=== PATIENT | female | born 1985 | race African-American/Black ===

== ENCOUNTER 2017-08-17 00:33 | Emergency (ER) | payer BC ==
[2017-08-17 00:55] VITALS: BP 150/81; PULSE 58; TEMP 98.5; BMI 30.2
[2017-08-17 01:49] LABS: URINE APPEARANCE CLEAR; URINE BILIRUBIN NEGATIVE (NEGATIVE); URINE BLOOD NEGATIVE (NEGATIVE); URINE COLOR STRAW; URINE GLUCOSE (UA) NEGATIVE (NEGATIVE); URINE KETONE NEGATIVE (NEGATIVE); URINE LEUK ESTERASE NEGATIVE (NEGATIVE); URINE NITRITE NEGATIVE (NEGATIVE); URINE PROTEIN NEGATIVE (NEGATIVE); URINE UROBILINOGEN NEGATIVE mg/dL (0.2-1.0)
[2017-08-17 01:52] LABS: HCG,QUALITATIVE URINE NEGATIVE
--- NOTE | 2017-08-17 01:52 | PDOC ---
History of Present Illness - General Chief Complaint: Back Pain Stated Complaint: LOWER BACK PAIN Time Seen by Provider: 08/17/17 01:07 - History of Present Illness Initial Comments: Ms Quintero is a 32yo F with a PMHx of HTN who presents w/ gradually progressive L flank pain for the past month. The pain was initially intermittent, but is now constant and more intense. In retrospect she notes progressively worsening urinary frequency and urgency. She was told she was borderline diabetic, has not been treated. Denies fevers, chills. Denies dysuria or suprapubic pain. She also notes that the pain gets worse w/ movements such as back forward flexion, rotation, lateral flexion. She states it almost feels like a pulling sensation. Denies CP, SOB. Past History - Past Medical History Allergies/Adverse Reactions: Allergies Allergy/AdvReac Type Severity Reaction Status Date / Time No Known Allergies Allergy Verified 06/03/16 11:18 Home Medications: Ambulatory Orders Ibuprofen 400 mg PO TID PRN #20 tablet 06/03/16 Losartan 50Mg/Hctz 12.5MG [Hyzaar -] 1 tab PO DAILY 06/03/16 Pseudoephedrine HCl [Sudafed] 30 mg PO QID PRN #28 tablet 06/03/16 Ibuprofen [Motrin -] 600 mg PO TID #21 tablet 08/17/17 Methocarbamol [Robaxin -] 500 mg PO TID #30 tablet 08/17/17 Asthma: No Cancer: No Cardiac Disorders: No COPD: No Diabetes: Yes (gestational) GI Disorders: Yes (ACID REFLUX) HTN: Yes Seizures: No Thyroid Disease: No - Surgical History Abdominal Surgery: Yes (HERNIA) - Reproductive History (#): 3 Para: 3 - Suicide/Smoking/Psychosocial Hx Smoking Status: No Smoking History: Never smoked Have you smoked in the past 12 months: No Number of Cigarettes Smoked Daily: 0 Information on smoking cessation initiated: No Hx Alcohol Use: Yes (socially) Drug/Substance Use Hx: No Substance Use Type: None Hx Substance Use Treatment: No *Physical Exam - Vital Signs Last Vital Signs Temp Pulse Resp BP Pulse Ox 98.5 F 58 L 18 150/81 99 08/17/17 00:50 08/17/17 00:50 08/17/17 00:50 08/17/17 00:50 08/17/17 00:50 - Physical Exam Comments: GEN: AAOx3, NAD, Lying comfortably HEENT: PERRLA, EOMi CV: S1, S2, RRR LUNG: CTABL ABD: Soft, NT, ND, no suprapubic tenderness MSK: No edema, no erythema, +flank tenderness NEURO: CN 2-12 grossly intact ED Treatment Course - LABORATORY CBC & Chemistry Diagram: 08/17/17 03:19 08/17/17 03:19 Medical Decision Making - Medical Decision Making 32yo F with PMHx of HTN, borderline DM2 who presents w/ L flank pain. She has some associated symptoms that may point towards etiology such as +frequency and +urgency. However, because of the chronic nature of this flank pain, also in consideration is muscle strain. -- UA, UCx, Upregnancy 08/17/17 02:09 Urine is clear. Gave patient hot pack to assess for improvement. *DC/Admit/Observation/Transfer Diagnosis at time of Disposition: Muscle strain of left upper back Qualifiers: Encounter type: initial encounter Qualified Code(s): S29.012A - Strain of muscle and tendon of back wall of thorax, initial encounter - Discharge Dispostion Disposition: HOME Admit: No - Prescriptions Prescriptions: Ibuprofen [Motrin -] 600 mg PO TID #21 tablet Methocarbamol [Robaxin -] 500 mg PO TID #30 tablet - Referrals - Patient Instructions Printed Discharge Instructions: DI for Muscle Strain - Post Discharge Activity Forms/Work/School Notes: Back to Work
[2017-08-17 03:23] LABS: BASO % 0.3 % (0-2.0); EOS % 3.1 % (0-4.5); HEMATOCRIT 37.4 % (32.4-45.2); HEMOGLOBIN 12.3 GM/dL (10.7-15.3); LYMPH % 34.1 % (8-40); MCH 29.8 pg (25.7-33.7); MCHC 32.8 g/dl (32.0-36.0); MEAN CELL VOLUME 90.9 fl (80-96); MEAN PLT VOLUME 8.5 fl (7.5-11.1); MONO % 7.2 % (3.8-10.2); NEUT % 55.3 % (42.8-82.8); PLATELET COUNT 230 K/MM3 (134-434); RBC 4.12 M/mm3 (3.60-5.2); RDW 13.2 % (11.6-15.6); WHITE BLOOD COUNT 7.4 K/mm3 (4.0-10.0)
[2017-08-17 03:48] LABS: ALBUMIN 3.8 g/dl (3.4-5.0); ALK PHOS 79 U/L (45-117); ANION GAP 8 (8-16); BILIRUBIN,TOTAL 0.3 mg/dL (0.2-1.0); BLOOD UREA NITROGEN 10 mg/dL (7-18); CHLORIDE 103 mmol/L (98-107); CO2 29 mmol/L (21-32); CREATININE 0.8 mg/dL (0.55-1.02); GLUCOSE,RANDOM 101 mg/dL (74-106); POTASSIUM 3.2 mmol/L (3.5-5.1); SGOT/AST 15 U/L (15-37); SGPT/ALT 26 U/L (12-78); SODIUM 140 mmol/L (136-145); TOT PROT 6.8 g/dl (6.4-8.2)
[2017-08-17] MEDS ORDERED: POTASSIUM CHLORIDE TABS 20 MEQ TABLET.ER (FP) PO ONE ×2 (03:54→04:00)
--- NOTE | 2017-08-17 05:05 | PDOC ---
Attending Attestation - Resident Resident Name: Lexi Vincent - ED Attending Attestation I have performed the following: I have examined & evaluated the patient, The case was reviewed & discussed with the resident, I agree w/resident's findings & plan - HPI HPI: 08/17/17 05:00 Pt comes with flank pain. She has multiple medical problems. She takes HCTZ for HTN and states that she has been unable to hold her urine. But she has no dysuria, and she has no fever. She has no hx of heavy lifting. - Physicial Exam PE: 08/17/17 05:05 Agree with resident exam. Pt has significant left flank pain. She has slight Left side pain. - Medical Decision Making 08/17/17 05:06 Pt has normal blood tests. She has no hematuria and no bacteria or leukocytes in her urine. She will still be sent for a CT scan of her abd pelvis, as we want to r/o mass or any other pathology. 08/17/17 05:42 Patient Name: GEORGINA PERRY THIS IS A PRELIMINARY REPORT FROM [facility] DATE OF SERVICE: 2017-08-17 05:00:08 IMAGES: 470 EXAM: CT ABDOMEN AND PELVIS without contrast HISTORY: Rule out stone. COMPARISON: None. FINDINGS: Lung bases are clear. The visualized cardiac chambers are normal size and configuration. Tiny gallstones are noted without inflammation. Normal unenhanced liver, pancreas, spleen, adrenal glands and kidneys. The stomach and abdominal small and large bowel are normal. There is no aortic aneurysm. There is no significant retroperitoneal lymphadenopathy. Diastases recti is noted without sonam hernia. The pelvic small and large bowel are normal. The appendix is normal. The uterus and adnexal structures are normal. There is an air-containing tampon. Urinary bladder is unremarkable. There is no pelvic free fluid. No discrete pelvic lymphadenopathy is identified. IMPRESSION: Tiny gallstones. No definite evidence of acute pathology. THIS DOCUMENT HAS BEEN ELECTRONICALLY SIGNED
== END 2017-08-17 05:56 | disposition home or self-care (01) ==
LOC: JER 00:33
DX: S29.012A Strain of muscle and tendon of back wall of thorax, initial encounter (principal); X58.XXXA Exposure to other specified factors, initial encounter; Y93.89 Activity, other specified; Y92.89 Other specified places as the place of occurrence of the external cause; Y99.8 Other external cause status; I10 Essential (primary) hypertension; K21.9 Gastro-esophageal reflux disease without esophagitis; E11.9 Type 2 diabetes mellitus without complications
CPT/HCPCS: 36415; 74176; 80053; 81003; 84703; 85025; 87086; 99282-25

== ENCOUNTER 2017-09-03 17:00 | Emergency (ER) | payer BC ==
--- NOTE | 2017-09-03 18:23 | PDOC ---
Rapid Medical Evaluation Chief Complaint: Cold Symptoms Time Seen by Provider: 09/03/17 18:20 Medical Evaluation: Allergies Allergy/AdvReac Type Severity Reaction Status Date / Time No Known Allergies Allergy Verified 09/03/17 18:19 09/03/17 18:22 pt c/o: sore throat, hoarse voice, body aches Pt on brief exam: mild erythema to soft palate, temp 100.0 Pt ordered for : rapid strep pt to proceed to the ED: Discharge Disposition - Diagnosis Sore throat - Referrals - Patient Instructions - Post Discharge Activity
[2017-09-03 18:26] VITALS: BP 134/84; PULSE 99; TEMP 100; BMI 30.2
[2017-09-03] MEDS ORDERED: IBUPROFEN 600 MG TABLET (FP) PO ONE ×2 (19:33→19:42)
--- NOTE | 2017-09-03 19:38 | PDOC ---
History of Present Illness - General Chief Complaint: Cold Symptoms Stated Complaint: COLD SYMPTOMS Time Seen by Provider: 09/03/17 18:20 History Source: Patient Exam Limitations: No Limitations - History of Present Illness Initial Comments: 09/03/17 19:34 32 yr female with c/o headache cough sore throat for 4 days fever 2 days no sob or chest pain, History of HTN. Past History - Past Medical History Allergies/Adverse Reactions: Allergies Allergy/AdvReac Type Severity Reaction Status Date / Time No Known Allergies Allergy Verified 09/03/17 18:19 Home Medications: Ambulatory Orders Losartan 50Mg/Hctz 12.5MG [Hyzaar -] 1 tab PO DAILY 06/03/16 Asthma: No Cancer: No Cardiac Disorders: No COPD: No DVT: No Diabetes: Yes (gestational) GI Disorders: Yes (ACID REFLUX) HTN: Yes Seizures: No Thyroid Disease: No - Surgical History Abdominal Surgery: Yes (HERNIA) - Reproductive History (#): 3 Para: 3 - Suicide/Smoking/Psychosocial Hx Smoking Status: No Smoking History: Never smoked Have you smoked in the past 12 months: No Number of Cigarettes Smoked Daily: 0 Information on smoking cessation initiated: No Hx Alcohol Use: No Drug/Substance Use Hx: No Substance Use Type: None Hx Substance Use Treatment: No *Physical Exam - Vital Signs Last Vital Signs Temp Pulse Resp BP Pulse Ox 100.0 F H 99 H 16 134/84 99 09/03/17 18:20 09/03/17 18:20 09/03/17 18:20 09/03/17 18:20 09/03/17 18:20 - Physical Exam General Appearance: Yes: Nourished, Appropriately Dressed HEENT: positive: EOMI, RENITA, TMs Normal, Pharynx Normal, Nasal Congestion Neck: positive: Supple. negative: Tender Respiratory/Chest: positive: Lungs Clear, Normal Breath Sounds. negative: Chest Tender Cardiovascular: positive: Regular Rhythm, Regular Rate Gastrointestinal/Abdominal: positive: Normal Bowel Sounds, Soft Musculoskeletal: positive: Normal Inspection Extremity: positive: Normal Capillary Refill, Normal Inspection, Normal Range of Motion Integumentary: positive: Normal Color, Dry, Warm Neurologic: positive: co pilot II-XII NML intact, Fully Oriented, Alert, Normal Mood/ Affect ED Treatment Course - ADDITIONAL ORDERS Additional order review: 09/03/17 18:50 Group A Strep Rapid Antigen - Final Throat Medical Decision Making - Medical Decision Making 09/03/17 19:37 cc: cough sore throat fever for 3 days no abd pain neg nvd daughter with same symptoms *DC/Admit/Observation/Transfer Diagnosis at time of Disposition: Influenza-like illness - Discharge Dispostion Disposition: HOME Condition at time of disposition: Fair - Referrals Referrals: Donal Roque [Primary Care Provider] - - Patient Instructions Printed Discharge Instructions: Influenza Additional Instructions: drink pleanty of fluids to stay well hydrated take ibuprofen every 8hrs for fever and pain also you can take tylenol every 4-6hrs for fever or pain rest at home return to ER for any worsening symptoms - Post Discharge Activity Forms/Work/School Notes: Back to Work
== END 2017-09-03 19:54 | disposition home or self-care (01) ==
LOC: JERFT 17:00
DX: J11.1 Influenza due to unidentified influenza virus with other respiratory manifestations (principal)
CPT/HCPCS: 87070; 87430; 99281-25

== ENCOUNTER 2018-06-13 19:16 | Emergency (ER) | payer BC ==
[2018-06-13 19:22] VITALS: BP 144/59; PULSE 66; TEMP 99; BMI 30.2
--- NOTE | 2018-06-13 19:39 | PDOC ---
History of Present Illness - General Chief Complaint: Vaginal Sxs Stated Complaint: CRAMPS AND VAGINAL DISCHARGED Time Seen by Provider: 06/13/18 19:21 History Source: Patient Exam Limitations: No Limitations - History of Present Illness Travel History: No Initial Comments: 06/13/18 19:36 32 yr female with vaginal discharge and lower abd cramping no bleeding. no fever no chills. no STD history. Past History - Past Medical History Allergies/Adverse Reactions: Allergies Allergy/AdvReac Type Severity Reaction Status Date / Time No Known Allergies Allergy Verified 06/13/18 19:20 Home Medications: Ambulatory Orders Losartan 50Mg/Hctz 12.5MG [Hyzaar -] 1 tab PO DAILY 06/03/16 metroNIDAZOLE 0.75% VAG. GEL [Metrogel 0.75% *Vaginal Gel* -] 1 applic VG HS #5 tube 06/13/18 Asthma: No Cancer: No Cardiac Disorders: No COPD: No DVT: No Diabetes: Yes (gestational) GI Disorders: Yes (ACID REFLUX) HTN: Yes Seizures: No Thyroid Disease: No - Surgical History Abdominal Surgery: Yes (HERNIA) - Reproductive History (#): 3 Para: 3 - Suicide/Smoking/Psychosocial Hx Smoking Status: No Smoking History: Never smoked Have you smoked in the past 12 months: No Number of Cigarettes Smoked Daily: 0 Hx Alcohol Use: No Drug/Substance Use Hx: No Substance Use Type: None Hx Substance Use Treatment: No *Physical Exam - Vital Signs Last Vital Signs Temp Pulse Resp BP Pulse Ox 99 F 66 18 144/59 L 100 06/13/18 19:21 06/13/18 19:21 06/13/18 19:21 06/13/18 19:21 06/13/18 19:21 - Physical Exam General Appearance: Yes: Nourished, Appropriately Dressed HEENT: positive: EOMI, RENITA Female Pelvic Exam: positive: normal external exam, discharge (yellow/white discharge no lesions , cervix non friable neg CMT) Gastrointestinal/Abdominal: positive: Normal Bowel Sounds, Soft. negative: Tender Medical Decision Making - Medical Decision Making 06/13/18 19:39 cc: vag discharge with discomfort will treat for BV pending cultures pt in monogamous relationship , no known STD exposures *DC/Admit/Observation/Transfer Diagnosis at time of Disposition: Vaginal discharge - Discharge Dispostion Disposition: HOME Condition at time of disposition: Good - Prescriptions Prescriptions: metroNIDAZOLE 0.75% VAG. GEL [Metrogel 0.75% *Vaginal Gel* -] 1 applic VG HS #5 tube - Referrals Referrals: Donal Roque [Primary Care Provider] - - Patient Instructions Printed Discharge Instructions: DI for Vaginal Discharge Additional Instructions: start the metro-gel antifungal medication for 5 nights use as directed drink pleanty of water no baths avoid soap in the genital area wear loose fitting clothing we will call you with the culture results in 2-3 days follow with your translator if any worsening symptoms - Post Discharge Activity
[2018-06-13 20:05] LABS: URINE APPEARANCE CLOUDY; URINE BILIRUBIN NEGATIVE (<2.0 mg/dL); URINE COLOR YELLOW; URINE GLUCOSE (UA) NEGATIVE (NEGATIVE); URINE KETONE NEGATIVE (NEGATIVE); URINE LEUK ESTERASE TRACE (NEGATIVE); URINE NITRITE NEGATIVE (NEGATIVE); URINE PROTEIN NEGATIVE (NEGATIVE)
[2018-06-13 20:06] LABS: HCG,QUALITATIVE URINE Negative
[2018-06-13 20:10] LABS: EPI CELLS MANY /HPF (FEW)
== END 2018-06-13 20:21 | disposition home or self-care (01) ==
LOC: JERFT 19:16
DX: N76.0 Acute vaginitis (principal); B96.89 Other specified bacterial agents as the cause of diseases classified elsewhere; I10 Essential (primary) hypertension; K21.9 Gastro-esophageal reflux disease without esophagitis; Z86.32 Personal history of gestational diabetes
CPT/HCPCS: 36415; 81003; 81015; 84703; 87070; 87205; 87491; 87591; 99281-25

== ENCOUNTER 2018-08-23 20:41 | Emergency (ER) | payer BC | END 2018-08-24 02:57 | disposition home or self-care (01) | LOC: JER 08-24 02:57 ==

== ENCOUNTER 2019-02-25 12:17 | Emergency (ER) | payer BC ==
[2019-02-25 12:24] VITALS: BP 141/53; PULSE 78; TEMP 98.7; BMI 31.1
[2019-02-25] MEDS ORDERED: SODIUM CHLORIDE 1,000 ML IV STA (12:24)
--- NOTE | 2019-02-25 12:24 | PDOC ---
Rapid Medical Evaluation Time Seen by Provider: 02/25/19 12:21 Medical Evaluation: Allergies Allergy/AdvReac Type Severity Reaction Status Date / Time No Known Allergies Allergy Verified 08/23/18 20:50 02/25/19 12:21 I have performed a brief exam on this patient. CC: abdominal pain with nausea and 2 episodes of diarrhea PE: Soft nondistended with epigastric tenderness. No guarding. Orders: abdominal w/u The patient will proceed to the ER for further evaluation. Discharge Disposition - Diagnosis Abdominal pain - Referrals - Patient Instructions - Post Discharge Activity
--- NOTE | 2019-02-25 13:16 | PDOC ---
History of Present Illness - General Chief Complaint: Pain Stated Complaint: ABD PAIN Time Seen by Provider: 02/25/19 12:21 History Source: Patient Exam Limitations: No Limitations - History of Present Illness Initial Comments: 02/25/19 13:16 Source: Patient HPI: 33yo F with PMH migraine, HTN, and "something with my adrenal glands that makes me have low K" presenting with nausea, abdominal pain for the week. First time 01/26, intermittent, burning/twisting epigastric pain that self resolves and recurs every several hours, not associated with meals, non-responsive to prilosec taken at home, improves with water. Has awoken at night due to the pain. Concurrent nausea throughout the week, no emesis. Remote episodes of GERD during teens / - this feels different. 1 or 2 episodes of loose stools around Thursday, no blood, normal BMs before and after these episodes without dark / tarry or light stools. No fevers or chills. Endorses mild headache during the week, similar to previous , self resolved. She denies any chest pain, SOB, difficulty breathing, blurry vision, dysuria, frequency, or urgency. LMP last month, due on Thursday, normally regular. Currently experiencing lower back cramps similar to her period cramps, worried about a possible miscarriage PCP: Donal Roque PSH: Social Hx: Denies smoking, drinking, or other substance usage. All:NKDA Past History - Past Medical History Allergies/Adverse Reactions: Allergies Allergy/AdvReac Type Severity Reaction Status Date / Time No Known Allergies Allergy Verified 02/25/19 12:25 Home Medications: Ambulatory Orders NK [No Known Home Medication] 08/24/18 Asthma: No Cancer: No Cardiac Disorders: No COPD: No DVT: No Diabetes: Yes (gestational) GI Disorders: Yes (ACID REFLUX) HTN: Yes Seizures: No Thyroid Disease: No Other medical history: adrenal insufficiency - Surgical History Abdominal Surgery: Yes (HERNIA) - Reproductive History (#): 3 Para: 3 - Suicide/Smoking/Psychosocial Hx Smoking Status: No Smoking History: Never smoked Have you smoked in the past 12 months: No Number of Cigarettes Smoked Daily: 0 Information on smoking cessation initiated: No Hx Alcohol Use: No Drug/Substance Use Hx: No Substance Use Type: None Hx Substance Use Treatment: No Review of Systems - Review of Systems Able to Perform ROS?: Yes Is the patient limited Persian proficient: No Constitutional: No: Chills, Fever, Weakness, Weight Stable HEENTM: No: Symptoms Reported Respiratory: No: Symptoms reported, Cough, Shortness of Breath, Wheezing Cardiac (ROS): No: Symptoms Reported, Chest Pain, Edema, Irregular Heart Rate, Palpitations, Chest Tightness ABD/GI: Yes: See HPI, Diarrhea, Nausea, Poor Appetite. No: Abdominal Distended , Constipated, Difficulty Swallowing, Poor Fluid Intake, Rectal Bleeding, Vomiting, Abdominal cramping, Tarry Stools : No: Symptoms Reported Musculoskeletal: Yes: Back Pain (feels like period cramps, period due in 2 days) . No: Symptoms Reported Integumentary: No: Symptoms Reported Neurological: Yes: Headache (tension WHIPPLE several days ago, self resolving, normal WHIPPLE for PT). No: Symptoms reported All Other Systems: Reviewed and Negative *Physical Exam - Vital Signs Last Vital Signs Temp Pulse Resp BP Pulse Ox 98.7 F 78 19 141/53 L 99 02/25/19 12:22 02/25/19 12:22 02/25/19 12:22 02/25/19 12:22 02/25/19 12:22 - Physical Exam Comments: 02/25/19 13:54 Vitals reviewed, AFHDS GEN: WDWN woman, resting in bed comfortably HEENT: EOMI, MMM, normal morphologies CV: RRR, nl s1/s2, no murmurs appreciated Pulm: Normal WOB, CTABL, no wheezes / rales / rhonchi Abd: soft, nondistended, TTP in epigastrium, non-tender in all other quadrants, +BS x4 Skin: WWP, dry, no rashes, no jaundice evident Pulses: 2+ radial, PT Neuro: alert and orients, CN grossly intact, MAEE ED Treatment Course - LABORATORY CBC & Chemistry Diagram: 02/25/19 14:14 02/25/19 13:43 Medical Decision Making - Medical Decision Making 02/25/19 13:15 33yo woman with PMH migraine, HTN, and "something with my adrenal glands that makes me have low K" presenting with subacute nausea and epigastric abdominal pain. History notable for intermittent non-radiating burning epigastric pain with associated nausea. Physical notable for stable vitals, epigastric tenderness. Together concerning for gastritis vs pancreatitis. ACS unlikely in young woman with minimal risk factors, no chest pain or discomfort, epigastric tenderness on exam. Plan for labs, possible GI cocktail, Dispo. No pain or nausea at the current time, will reassess and medicate as necessary. -CBC, CMP, Lipase -EKG, Cardiac Profile -RUQ US -1L NS IVF Bolus 02/25/19 15:26 -Patient most concerned about , serum preg negative -CBC, CMP, Lipase, Cardiac Enzymes wnl -RUQ US pending -Pepcid, Maalox for epigastric pain 02/25/19 16:28 -RUQUS: cholelithiasis with no sonographic evidence of cholecystitis. Hepatomegaly vs normal variant elongated right hepatic lobe / Soto's lobe 02/25/19 16:51 -Referral to Dr. Machuca, general surgery, for cholelithiasis / possible biliary colic Dispo: home 02/25/19 18:02 -Pt feeling better without maalox / pepcid, orders cancelled -Tolerated crackers and juice PO -Return precautions discussed, patient verbalized understanding -Discussed PPI vs H2 blockers and Maalox Discharge *DC/Admit/Observation/Transfer Diagnosis at time of Disposition: Abdominal pain Qualifiers: Abdominal location: epigastric Qualified Code(s): R10.13 - Epigastric pain - Discharge Dispostion Disposition: HOME Condition at time of disposition: Improved Decision to Admit order: No - Referrals Referrals: Donal Roque [Primary Care Provider] - Doni Machuca MD [Staff Physician] - - Patient Instructions Printed Discharge Instructions: DI for Gallstones, DI for Gastroesophageal Reflux Disease (GERD) Additional Instructions: You were seen in the emergency department for upper abdominal pain. Your workup indicated possible gastritis vs gall stone related pain. You have been referred to a general surgeon (Dr. Machuca) and will receive a call regarding an appointment in the next few days. This is for further evaluation and in case you opt for surgical removal of your gall bladder in the future if symptoms persist. Please return to the ED if you experience worsening RUQ pain with fevers / chills / nausea / vomiting or any other worsening or concerning symptoms. For your belly pain (likely gastritis), consider trying over the counter medications such as Maalox and/or Pepcid and do not hesitate to return to the ED or your primary care provider for new or worsening symptoms. - Post Discharge Activity
--- NOTE | 2019-02-25 13:50 | EKG ---
Test Reason : Blood Pressure : / mmHG Vent. Rate : 061 BPM Atrial Rate : 061 BPM P-R Int : 140 ms QRS Dur : 084 ms QT Int : 434 ms P-R-T Axes : 069 061 042 degrees QTc Int : 436 ms NORMAL SINUS RHYTHM NONSPECIFIC T WAVE ABNORMALITY ABNORMAL ECG WHEN COMPARED WITH ECG OF 24-AUG-2018 00:11, NO SIGNIFICANT CHANGE WAS FOUND Confirmed by LULI SEARS MD ([id number]) on 02/25/2019 1:49:37 PM Referred By: Confirmed By:LULI SEARS MD
[2019-02-25 14:31] LABS: BASO % 0.3 % (0-2.0); HEMATOCRIT 38.6 % (32.4-45.2); HEMOGLOBIN 13.1 GM/dL (10.7-15.3); MCH 30.7 pg (25.7-33.7); MCHC 33.8 g/dl (32.0-36.0); MEAN CELL VOLUME 90.7 fl (80-96); MEAN PLT VOLUME 8.6 fl (7.5-11.1); MONO % 8.8 % (3.8-10.2); NEUT % 64.9 % (42.8-82.8); PLATELET COUNT 239 K/MM3 (134-434); RBC 4.26 M/mm3 (3.60-5.2); WHITE BLOOD COUNT 7.4 K/mm3 (4.0-10.0)
[2019-02-25 14:43] LABS: BILIRUBIN,TOTAL 0.7 mg/dL (0.2-1); BLOOD UREA NITROGEN 8.7 mg/dL (7-18); CALCIUM 9.3 mg/dL (8.5-10.1); CREATININE 0.9 mg/dL (0.55-1.3); TOT PROT 7.4 g/dl (6.4-8.2)
--- NOTE | 2019-02-25 14:48 | PDOC ---
Documentation entered by Leana Cunningham SCRIBE, acting as scribe for Kelly Vale MD. Kelly Vale MD: This documentation has been prepared by the Octavio wilkinson Xhesika, SCRIBE, under my direction and personally reviewed by me in its entirety. I confirm that the documentation accurately reflects all work, treatment, procedures, and medical decision making performed by me. Attending Attestation - Resident Resident Name: JosephKimo - ED Attending Attestation I have performed the following: I have examined & evaluated the patient, The case was reviewed & discussed with the resident, I agree w/resident's findings & plan, Exceptions are as noted - HPI HPI: 02/25/19 14:39 The patient is a 33 year old female with a significant PMH of migraines, HTN, gestational diabetes, and acid reflux who presents to the emergency department with 1 week of epigastric pain associated with nausea, and 2 episodes of loose stools on Thursday. Patient describes the epigastric pain as 7/10, intermittent, burning pain that self resolves and recurs every several hours improving with water. Patient states she took prilosec with no improvement of symptoms. Patient states she endorses back pain describes as "cramps" and is worried she is and is having a "miscarriage." Patient notes her LMP was exactly 1 month ago. The patient denies chest pain, shortness of breath, headache and dizziness. Denies fever, chills, cough, vomiting and constipation. Denies dysuria, frequency, urgency and hematuria. Allergies: NKDA Past surgical history: PCP: Donal Roque - Physicial Exam PE: GENERAL: Awake, alert, and fully oriented, in no acute distress HEAD: No signs of trauma EYES: PERRLA, EOMI, sclera anicteric, conjunctiva clear ENT: Auricles normal inspection, hearing grossly normal, nares patent, oropharynx clear without exudates. Moist mucosa NECK: Normal ROM, supple, no lymphadenopathy, JVD, or masses LUNGS: Breath sounds equal, clear to auscultation bilaterally. No wheezes, and no crackles HEART: Regular rate and rhythm, normal S1 and S2, no murmurs, rubs or gallops ABDOMEN: Soft, +mild epigastric tenderness, normoactive bowel sounds. No guarding, no rebound. No masses EXTREMITIES: Normal range of motion, no edema. No clubbing or cyanosis. No cords, erythema, or tenderness NEUROLOGICAL: Cranial nerves II through XII grossly intact. Normal speech, normal gait. Motor and sensation intact SKIN: Warm, dry, normal turgor, no rashes or lesions noted. - Medical Decision Making Will obtain serum test (patient urinated and forgot to use the cup). DDx includes , GERD, pancreatitis, gallstones.
[2019-02-25] MEDS ORDERED: MAG HYDROX/AL HYDROX/SIMETH 30 ML UNIT-DOSE CUP PO ONE (15:28)
[2019-02-25] MEDS ORDERED: FAMOTIDINE 20 MG/50 ML IVPB 20 MG/50 ML MG IVPB ONE (15:28)
== END 2019-02-25 18:10 | disposition home or self-care (01) ==
LOC: JER 12:17
PROC: 3E0337Z Introduction of Electrolytic and Water Balance Substance into Peripheral Vein, Percutaneous Approach (ICD-10-PCS; principal; 2019-02-25)
DX: R10.13 Epigastric pain (principal); I10 Essential (primary) hypertension
CPT/HCPCS: 36415; 76705-TC; 80053; 82550; 82553; 83690; 84484; 84703; 85025; 93005; 93010; 99283-25; J7030

== ENCOUNTER 2019-07-03 08:26 | Emergency (ER) | payer BC, OTHER ==
[2019-07-03 08:30] VITALS: BP 175/98; PULSE 93; TEMP 97.6; BMI 30.2
--- NOTE | 2019-07-03 08:47 | PDOC ---
History of Present Illness - General Chief Complaint: Respiratory Stated Complaint: COLD LIKE SYMPTOMS Time Seen by Provider: 07/03/19 08:33 History Source: Patient Exam Limitations: No Limitations Past History - Past Medical History Allergies/Adverse Reactions: Allergies Allergy/AdvReac Type Severity Reaction Status Date / Time No Known Allergies Allergy Verified 07/03/19 08:30 Home Medications: Ambulatory Orders NK [No Known Home Medication] 08/24/18 Fluticasone Prop 0.05% Nasal [Flonase -] 1 - 2 spray NS BID #1 spray.pump Asthma: No Cancer: No Cardiac Disorders: No COPD: No DVT: No Diabetes: Yes (gestational) GI Disorders: Yes (ACID REFLUX) HTN: Yes Seizures: No Thyroid Disease: No - Surgical History Abdominal Surgery: Yes (HERNIA) - Reproductive History (#): 3 Para: 3 - Psycho Social/Smoking Cessation Hx Smoking Status: No Smoking History: Never smoked Have you smoked in the past 12 months: No Number of Cigarettes Smoked Daily: 0 Hx Alcohol Use: No Drug/Substance Use Hx: No Substance Use Type: None Hx Substance Use Treatment: No *Physical Exam - Vital Signs Last Vital Signs Temp Pulse Resp BP Pulse Ox 97.6 F 93 H 18 175/98 H 99 07/03/19 08:27 07/03/19 08:27 07/03/19 08:27 07/03/19 08:27 07/03/19 08:27 - Physical Exam General Appearance: No: Apparent Distress HEENT: positive: Normal Voice, Pharynx Normal, Nasal Congestion. negative: Muffled/Hoarse voice, Pharyngeal Erythema, Tonsillar Exudate, Tonsillar Erythema , Rhinorrhea Respiratory/Chest: positive: Lungs Clear, Normal Breath Sounds. negative: Respiratory Distress Cardiovascular: positive: Regular Rhythm, Regular Rate, S1, S2. negative: Murmur Integumentary: positive: Normal Color Neurologic: positive: Alert Medical Decision Making - Medical Decision Making 34 y/o F with hx of HTN, GERD presents with cough (occasionally productive), congestion, rhinorrhea and frontal sinus pressure x2-3 days. Denies fever, sob, cp, abd pain, n/v/d. Likely viral URI Supportive care discussed 07/03/19 08:44 Discharge - Discharge Information Problems reviewed: Yes Clinical Impression/Diagnosis: Viral URI Condition: Stable Disposition: HOME - Admission No - Additional Discharge Information Prescriptions: Fluticasone Prop 0.05% Nasal [Flonase -] 1 - 2 spray NS BID #1 spray.pump Prescription Drug Monitoring Program (I-STOP) results: I-STOP not reviewed - Follow up/Referral Referrals: Donal Roque [Primary Care Provider] - 2 Days - Patient Discharge Instructions Patient Printed Discharge Instructions: DI for Viral Upper Respiratory Infection -- Adult Additional Instructions: Thank you for choosing [facility]. It was a pleasure taking care of you. Use normal saline spray/Nedi-pot to help with congestion Humdifier may help as well Use the Flonase spray as directed Take Robitussin or Mucinex as needed for cough Follow-up with doctor in 2 days Return to the Emergency Department if your symptoms worsen or persist, you have fever, shortness of breath, chest pain, severe abdominal pain, vomiting, dizziness, weakness of extremities (arms and/or legs), changes in vision or walking or other concerning symptoms. - Post Discharge Activity Work/Back to School Note: Back to Work
== END 2019-07-03 09:14 | disposition home or self-care (01) ==
LOC: JERFT 08:26
DX: J06.9 Acute upper respiratory infection, unspecified (principal); I10 Essential (primary) hypertension; K21.9 Gastro-esophageal reflux disease without esophagitis
CPT/HCPCS: 99282-25

== ENCOUNTER 2020-03-31 19:18 | Emergency (ER) | payer BC, OTHER ==
[2020-03-31 19:23] VITALS: BP 138/71; PULSE 80; TEMP 98.5; BMI 32.5
[2020-03-31] MEDS ORDERED: FLUCONAZOLE 150 MG TABLET PO ONE ×2 (20:03→20:24)
--- NOTE | 2020-03-31 20:06 | PDOC ---
History of Present Illness - General Chief Complaint: Vaginal Sxs Stated Complaint: VAGINAL EXAMINATION Time Seen by Provider: 03/31/20 19:28 History Source: Patient Exam Limitations: Clinical Condition - History of Present Illness Initial Comments: 03/31/20 20:06 Patient with no significant past medical history present with complaint of one- week history of white vaginal discharge which looks like yeast infection. Patient reports she is prone to yeast infections and symptoms look similar to when she gets yeast infection. Patient sexually active with one partner. Denies vaginal bleeding, urinary frequency, dysuria, burning with urination, fever, chills, abdominal pain. Denies any other symptoms. Patient has not taken anything for symptoms Is this a multiple visit Asthma Patient?: No Timing/Duration: 1 week Past History - Medical History Allergies/Adverse Reactions: Allergies Allergy/AdvReac Type Severity Reaction Status Date / Time No Known Allergies Allergy Verified 07/03/19 08:46 Home Medications: Ambulatory Orders Amlodipine Besylate [Norvasc -] 10 mg PO DAILY 07/03/19 Fluticasone Prop 0.05% Nasal [Flonase -] 1 - 2 spray NS BID #1 spray.pump 07/03/19 Diclofenac Sodium [Voltaren] 1 applic TP Q8H PRN #1 tube 11/25/19 Doxycycline Hyclate 100 mg PO BID 7 Days #14 tablet 11/25/19 Fluconazole [Diflucan] 150 mg PO ONCE #1 tablet 03/31/20 Asthma: No Cancer: No Cardiac Disorders: No COPD: No DVT: No Diabetes: Yes (gestational) GI Disorders: Yes (ACID REFLUX) HTN: Yes Seizures: No Thyroid Disease: No - Surgical History Abdominal Surgery: Yes (HERNIA) - Reproductive History Is Patient Now?: No (#): 3 Para: 3 - Immunization History Immunization Up to Date: No - Psycho-Social/Smoking History Smoking Status: No Smoking History: Never smoked Have you smoked in the past 12 months: No Number of Cigarettes Smoked Daily: 0 - Substance Abuse Hx (Audit-C & DAST Scrn) How often the patient has a drink containing alcohol: Never Score: In Men: 4 or > Positive; In Women: 3 or > Positive: 0 Screen Result (Pos requires Nsg. Audit-10AR): Negative In the last yr the pt used illegal drug/Rx for NonMed reason: No Score: Yes response is considered Positive: 0 Screen Result (Positive result requires Nsg. DAST-10): Negative Review of Systems - Review of Systems Able to Perform ROS?: Yes Is the patient limited Brazilian proficient: No Constitutional: No: Chills, Fever, Malaise HEENTM: No: Symptoms Reported, See HPI, Eye Pain, Blurred Vision, Tearing, Recent change in vision, Double Vision, Cataracts, Ear Pain, Ocular Prothesis, Ear Discharge, Nose Pain, Nose Congestion, Tinnitus, Nose Bleeding, Hearing Loss, Throat Pain, Throat Swelling, Mouth Pain, Dental Problems, Difficulty Swallowing, Mouth Swelling, Other Respiratory: No: Symptoms reported, See HPI, Cough, Orthopnea, Shortness of Breath, SOB with Exertion, SOB at Rest, Stridor, Wheezing, Productive cough, Hemoptysis, Other Cardiac (ROS): No: Symptoms Reported, See HPI, Chest Pain, Edema, Irregular Heart Rate, Lightheadedness, Palpitations, Syncope, Chest Tightness, Other ABD/GI: No: Symptoms Reported, Nausea, Vomiting, Abdominal cramping : Yes: Symptoms Reported, See HPI, Discharge. No: Burning, Dysuria, Frequency, Urgency Musculoskeletal: No: Back Pain All Other Systems: Reviewed and Negative *Physical Exam - Vital Signs Last Vital Signs Temp Pulse Resp BP Pulse Ox 98.5 F 80 19 138/71 100 03/31/20 19:19 03/31/20 19:19 03/31/20 19:19 03/31/20 19:19 03/31/20 19:19 - Physical Exam General Appearance: Yes: Nourished, Appropriately Dressed. No: Apparent Distress HEENT: positive: Normal ENT Inspection Neck: positive: Supple Respiratory/Chest: positive: Lungs Clear, Normal Breath Sounds. negative: Respiratory Distress, Accessory Muscle Use Cardiovascular: positive: Regular Rhythm, Regular Rate Female Pelvic Exam: positive: normal external exam, cervical os closed, discharge (Moderate amount of thick white non-malodorous discharge in vaginal vault. No visible lesion in vaginal vault. No cervical motion tenderness). negative: CMT, lesions, adnexal tenderness, vaginal bleeding Gastrointestinal/Abdominal: positive: Normal Bowel Sounds. negative: Tender, Flat, Soft Musculoskeletal: positive: Normal Inspection. negative: CVA Tenderness Extremity: positive: Normal Inspection, Normal Range of Motion Integumentary: positive: Normal Color Neurologic: positive: Fully Oriented, Alert, Normal Mood/Affect, Normal Response, Motor Strength 5/5 Medical Decision Making - Medical Decision Making 03/31/20 20:07 Patient with no significant past medical history present with complaint of one- week history of white vaginal discharge which looks like yeast infection. Patient reports she is prone to yeast infections and symptoms look similar to when she gets yeast infection. Patient sexually active with one partner. Denies vaginal bleeding, urinary frequency, dysuria, burning with urination, fever, chills, abdominal pain. Denies any other symptoms. Patient has not taken anything for symptoms Exam significant for moderate amount of white non-malodorous discharge in vaginal vault consistent with candidiasis. No visible lesions. No blood in vault. No cervical motion tenderness. No abdominal tenderness. Patient in no acute distress. Genital culture of vaginal discharge sent, UA, urine hCG urine culture lab ordered. Urine GC and chlamydia tests ordered. Will treat with Diflucan 150 mg for yeast infection. Patient educated on vaginal hygiene and stable for discharge with HEMATOLOGY TECHNICIAN follow-up Discharge - Discharge Information Problems reviewed: Yes Clinical Impression/Diagnosis: Vaginitis Qualifiers: Chronicity: acute Qualified Code(s): N76.0 - Acute vaginitis Condition: Stable Disposition: HOME - Admission No - Additional Discharge Information Prescriptions: Fluconazole [Diflucan] 150 mg PO ONCE #1 tablet - Follow up/Referral - Patient Discharge Instructions Patient Printed Discharge Instructions: DI for Vaginal Yeast Infection Additional Instructions: Your discharge is likely from yeast infection. You were given to treatment today for yeast infection. Another dose of antifungal sent to your pharmacy and only pick it up if no improvement in 3 days and take a second dose. Follow-up with your HEMATOLOGY TECHNICIAN - Post Discharge Activity
[2020-03-31 20:26] LABS: PH,URINE 6.5 (5.0-8.0); URINE APPEARANCE CLOUDY; URINE BILIRUBIN NEGATIVE (NEGATIVE); URINE COLOR YELLOW; URINE GLUCOSE (UA) NEGATIVE (NEGATIVE); URINE KETONE NEGATIVE (NEGATIVE); URINE LEUK ESTERASE NEGATIVE (NEGATIVE); URINE NITRITE NEGATIVE (NEGATIVE); URINE PROTEIN NEGATIVE (NEGATIVE)
[2020-03-31 20:29] LABS: HCG,QUALITATIVE URINE Negative
== END 2020-03-31 20:28 | disposition home or self-care (01) ==
LOC: JERFT 19:18
DX: N76.0 Acute vaginitis (principal)
CPT/HCPCS: 36415; 81003; 84703; 87070; 87086; 87205; 87491; 87591; 99284-25

== ENCOUNTER 2021-03-15 18:13 | Emergency (ER) | payer OTHER ==
[2021-03-15 18:21] VITALS: BP 131/83; PULSE 74; TEMP 98; BMI 30.2
[2021-03-15 20:09] LABS: SYPHILIS W/ RPR CONF NON-REACTIVE (NONREACTIVE)
[2021-03-15 20:36] LABS: HIV INTERPRETATION NEGATIVE (NEGATIVE)
== END 2021-03-15 19:31 | disposition home or self-care (01) ==
LOC: JERFT 18:13
DX: N76.0 Acute vaginitis (principal)
CPT/HCPCS: 36415; 86780; 87070; 87077; 87205; 87389; 87491; 87591; 87661; 99283-25

== ENCOUNTER 2021-08-23 18:55 | Emergency (ER) | payer OTHER ==
[2021-08-23 19:03] VITALS: BP 162/78; PULSE 74; TEMP 97.8; BMI 29.6
[2021-08-23] MEDS ORDERED: ACETAMINOPHEN 325 MG TABLET (FP) PO ONE (20:25)
== END 2021-08-23 22:06 | disposition home or self-care (01) ==
LOC: JERFT 18:55
DX: M79.645 Pain in left finger(s) (principal)
CPT/HCPCS: 73130-TC-LT-FY; 99284-25

== ENCOUNTER 2022-02-08 01:17 | Emergency (ER) | payer BC, OTHER ==
[2022-02-08 01:39] VITALS: BP 124/81; PULSE 66; RESP 20; TEMP 98.1; BMI 29.2
[2022-02-08] MEDS ORDERED: DEXAMETHASONE SOD PHOSPHATE 4 MG/1 ML VIAL IM ONE (02:27)
[2022-02-08] MEDS ORDERED: DEXAMETHASONE SOD PHOSPHATE 10 MG/1 ML VIAL ONE (02:33)
== END 2022-02-08 02:39 | disposition home or self-care (01) ==
LOC: JER 01:17
PROC: 3E023NZ Introduction of Analgesics, Hypnotics, Sedatives into Muscle, Percutaneous Approach (ICD-10-PCS; principal; 2022-02-08)
DX: T20.02XA Burn of unspecified degree of lip(s), initial encounter (principal)
CPT/HCPCS: 99283-25

== ENCOUNTER 2022-03-24 23:31 | Emergency (ER) | payer OTHER ==
[2022-03-24 23:35] VITALS: BP 159/90; PULSE 78; RESP 18; TEMP 98.3; BMI 31.1
== END 2022-03-25 01:21 | disposition home or self-care (01) ==
LOC: JER 23:31
DX: R00.2 Palpitations (principal)
CPT/HCPCS: 93005; 93010; 99283-25

== ENCOUNTER 2023-02-11 12:51 | Emergency (ER) | payer OTHER ==
[2023-02-11 13:03] VITALS: RESP 17; BMI 30.3
[2023-02-11] MEDS ORDERED: ACETAMINOPHEN 325 MG TABLET (FP) PO ONE (13:55)
[2023-02-11] MEDS ORDERED: ACETAMINOPHEN 325 MG TABLET (FP) ONE (14:18)
[2023-02-11 14:32] LABS: EPI CELLS 16 /uL (0-25.1); HYALINE CASTS 2 /uL (0-3.1); URINE APPEARANCE CLEAR; URINE BACTERIA 1240 /uL (0-1359); URINE BILIRUBIN NEGATIVE (NEGATIVE); URINE COLOR ORANGE; URINE GLUCOSE (UA) NEGATIVE (NEGATIVE); URINE KETONE TRACE (NEGATIVE); URINE LEUK ESTERASE 2+ (NEGATIVE); URINE NITRITE NEGATIVE (NEGATIVE); URINE PROTEIN 1+ (NEGATIVE); URINE RBC 1068 /uL (0-23.9); URINE WBC 175 /uL (0-25.8)
[2023-02-11 14:57] LABS: HCG,QUALITATIVE URINE Positive
[2023-02-11 15:02] LABS: BASO % 0.2 % (0-2.0); EOS % 0.9 % (0-4.5); HEMATOCRIT 36.7 % (32.4-45.2); HEMOGLOBIN 11.8 GM/dL (10.7-15.3); LYMPH % 17.2 % (8-40); MCHC 32.3 g/dl (32.0-36.0); MEAN CELL VOLUME 86.7 fl (80-96); MEAN PLT VOLUME 9.5 fl (7.5-11.1); MONO % 8.8 % (3.8-10.2); NEUT % 72.9 % (42.8-82.8); PLATELET COUNT 279 10^3/uL (134-434); RBC 4.23 M/mm3 (3.60-5.2); RDW 14.3 % (11.6-15.6); WHITE BLOOD COUNT 9.6 K/mm3 (4.0-10.0)
[2023-02-11 15:33] LABS: POTASSIUM 3.3 mmol/L (3.5-5.1)
[2023-02-11 15:36] LABS: BLOOD UREA NITROGEN 7.3 mg/dL (7-18)
[2023-02-11 15:39] LABS: CREATININE 0.9 mg/dL (0.55-1.3)
[2023-02-11 15:41] LABS: BILIRUBIN,TOTAL 0.6 mg/dL (0.2-1); TOT PROT 7.3 g/dl (6.4-8.2)
[2023-02-11 16:50] VITALS: BP 115/77; PULSE 72; TEMP 97.3
== END 2023-02-11 19:23 | disposition home or self-care (01) ==
LOC: JER 12:51
DX: O03.9 Complete or unspecified spontaneous abortion without complication (principal)
CPT/HCPCS: 36415; 76817-TC; 80053; 81003; 84702; 84703; 85025; 86850; 86900; 86901; 87086; 99284-25

== ENCOUNTER 2024-04-10 19:39 | Emergency (ER) | payer OTHER ==
[2024-04-10 19:43] VITALS: BP 155/88; PULSE 80; RESP 17; TEMP 98.6; BMI 30.7
[2024-04-10] MEDS ORDERED: ACETAMINOPHEN 500 MG TABLET (FP) ONE (20:13)
[2024-04-10] MEDS: ACETAMINOPHEN 500 MG TABLET (FP) PO ONE (20:14)
== END 2024-04-10 20:16 | disposition home or self-care (01) ==
LOC: JERFT 19:39
DX: J02.9 Acute pharyngitis, unspecified (principal); R09.81 Nasal congestion; R53.81 Other malaise; J06.9 Acute upper respiratory infection, unspecified; Z20.822 Contact with and (suspected) exposure to COVID-19
CPT/HCPCS: 0241U-QW; 99283-25

== ENCOUNTER 2024-09-05 10:36 | Emergency (ER) | payer OTHER ==
[2024-09-05 10:55] VITALS: BP 132/78; PULSE 82; RESP 16; TEMP 99.9; BMI 30.7
[2024-09-05] MEDS ORDERED: KETOROLAC TROMETHAMINE 30 MG/1 ML VIAL ONE (11:32)
[2024-09-05] MEDS: KETOROLAC TROMETHAMINE 30 MG/1 ML VIAL IM ONE (11:40)
== END 2024-09-05 12:05 | disposition home or self-care (01) ==
LOC: JERFT 10:36
PROC: 3E0233Z Introduction of Anti-inflammatory into Muscle, Percutaneous Approach (ICD-10-PCS; principal; 2024-09-05)
DX: J10.1 Influenza due to other identified influenza virus with other respiratory manifestations (principal); M54.9 Dorsalgia, unspecified; R05.9 Cough, unspecified; M79.10 Myalgia, unspecified site; R53.81 Other malaise; R07.9 Chest pain, unspecified; B34.9 Viral infection, unspecified; Z20.822 Contact with and (suspected) exposure to COVID-19
CPT/HCPCS: 0241U-QW; 71046-TC-FY; 93005; 93010; 99284-25